=== PATIENT | male | born 1990 | race Caucasian/White ===

== ENCOUNTER 2016-04-17 13:18 | Emergency (ER) | payer OTHER ==
[~2016-04-17] VITALS: Ht 172.7 cm; Wt 59.1 kg
[~2016-04-17 13:18] MED LIST: AMOXICILLIN 50500 MG PO; NO HOME MEDICATIONS; NO HOME MEDS; NORCO 325 MG-51 TAB PO; NORCO 325 MG-7.1 TAB PO; PEN-VEE K500 MG PO; ULTRAM 50MG TAB50 MG PO
[2016-04-17 13:32] VITALS: BP 129/93; PULSE 69; TEMP 97.6
[2016-04-17] MEDS ORDERED: AMOXICILLIN 50500 MG PO (14:29)
[2016-04-17] MEDS ORDERED: ULTRAM 50MG TAB50 MG PO (14:29)
== END 2016-04-17 14:33 | disposition home or self-care (01) ==
LOC: COL.ER 13:18
DX: K08.89 Other specified disorders of teeth and supporting structures (principal); F17.210 Nicotine dependence, cigarettes, uncomplicated